=== PATIENT | female | born 1960 | race Caucasian/White ===

== ENCOUNTER → 2016-11-25 | Outpatient (CLI) | payer BC ==
[~2016-11-25] MED LIST: CELEXA PO; CLARITIN D PO; CLARITIN10 M3 DOB; DEPAKOTE ER PO; DEPAKOTE ER250 MG PO; DETROL LA2 MG PO; FISH OIL PO; FOLIC ACID PO; FOLIC ACID1 MG PO; FOSAMAX PO; LANSOPRAZOLE30 MG PO; MAXALT MLT10 MG/TAB PO; MIACALCIN4 ML; MULTI VITAMINS W1 MG; NEXIUM PO; NEXIUM40 MG/PACK; NITROFURANTOIN100 M3 PO; PANTOPRAZOLE SO40 MG PO; SIMVASTATIN10 MG PO; VITAMIN D1000 UNIT PO; ZONEGRAN100 MG PO
--- NOTE | ~2016-11-25 | US98 ---
[facility] A Service of [facility] RADIOLOGY TEXT RESULTS PATIENT: ANNETTA MOTLEY LOCATION: [facility] : 60 UNIT #: [id number] AGE: [address]: Cee Parkinson MD SEX: F ORDER DR: [id number] [place], [place] [address] [id number] O MR#: [id number] Acc #: [id number] NAME: ANNETTA MOTLEY : 1960 SEX: F STUDY DATE/TIME: 11/25/2016 10:10 UNIT: [facility] ROOM: STUDY DESCRIPTION: US Pelvic Non-OB Complete Attending Physician: Cee Parkinson M.D. Referring Physician: Cee Parkinson M.D. Ordering Physician: Cee Parkinson M.D. Primary Care Physician: Cee Pariknson M.D. MEDICAL IMAGING REPORT This report is preliminary unless electronic signature is present EXAM Transabdominal pelvic ultrasound DATE 11/25/2016 HISTORY Right lower quadrant pain. Abdominal pain. Weight gain and bloating. Symptoms present for a couple of months. Last menstrual period in her mid 40s. COMPARISON No prior pelvic ultrasound at this institution for comparison. Correlation made with CT abdomen and pelvis without contrast 08/25/2014. FINDINGS Transabdominal imaging only was performed, as requested. The uterus measures 5.1 x 2.6 x 3.1 cm. Endometrial bilayer is very difficult to visualize and accurately measure, but it measures on the order of 3 mm which is within normal limits in this postmenopausal patient. No definite focal endometrial myometrial lesion is identified on this limited study. The right and left ovaries are not satisfactorily visualized, likely obscured by bowel gas. Urinary bladder is incompletely distended and appears unremarkable. No free fluid is evident. IMPRESSION [facility] A Service of [facility] RADIOLOGY TEXT RESULTS PATIENT: ANNETTA MOTLEY LOCATION: [facility] : 60 UNIT #: [id number] AGE: [address]: Cee Parkinson MD SEX: F ORDER DR: 1. Unremarkable transabdominal pelvic ultrasound. 2. Neither the right nor left ovary could be visualized, likely obscured by bowel gas. Dictated by... Mary Bustillos M.D. THIS IS AN ELECTRONICALLY VERIFIED REPORT Mary Bustillos M.D. at 11/27/2016 8:32 AM [facility]/terell TD: 11/25/2016 16:01 JOB #: [id number] MEDICAL IMAGING REPORT Page 1 of 1 COPY
--- NOTE | ~2016-11-25 | US5 ---
[facility] A Service of [facility] RADIOLOGY TEXT RESULTS PATIENT: ANNETTA MOTLEY LOCATION: [facility] : 60 UNIT #: [id number] AGE: [address]: Cee Parkinson MD SEX: F ORDER DR: [id number] [facility] [address] [facility] [address] [place], [place] [address] [id number] O MR#: [id number] Acc #: [id number] NAME: ANNETTA MOTLEY : 1960 SEX: F STUDY DATE/TIME: 11/25/2016 10:10 UNIT: [facility] ROOM: STUDY DESCRIPTION: US Abdominal Complete Attending Physician: Cee Parkinson M.D. Referring Physician: Cee Parkinson M.D. Ordering Physician: Cee Parkinson M.D. Primary Care Physician: Cee Parkinson M.D. MEDICAL IMAGING REPORT This report is preliminary unless electronic signature is present EXAM Abdominal ultrasound, complete, 11/25/2016. HISTORY Abdominal pain and bilateral flank pain for 3 months with weight gain and abdominal bloating. Palpable liver and spleen on physical examination 11/13/2016. FINDINGS The liver is homogeneous in echotexture and demonstrates no cystic or solid mass lesions. The intra and extrahepatic bile ducts are not dilated. The gallbladder is normal with no evidence of cholelithiasis, wall thickening, or pericholecystic fluid. The common duct measures 2 mm. The pancreas and spleen are normal. The spleen measures 8.4 cm in greatest diameter. The visualized portions of the abdominal aorta and inferior vena cava are within normal limits. The kidneys are normal bilaterally. IMPRESSION Negative abdominal ultrasound. Dictated by... Earl Antony M.D. THIS IS AN ELECTRONICALLY VERIFIED REPORT Earl Antony M.D. at 11/26/2016 7:29 AM [place]/claudia TD: 11/25/2016 17:19 JOB #: [id number] [facility] A Service of [facility] RADIOLOGY TEXT RESULTS PATIENT: ANNETTA MOTLEY LOCATION: [facility] : 60 UNIT #: [id number] AGE: [address]: Cee Parkinson MD SEX: F ORDER DR: MEDICAL IMAGING REPORT Page 1 of 1 COPY
== END | disposition home or self-care (01) ==
LOC: CWCC 09:28
DX: R10.9 Unspecified abdominal pain (principal)
CPT/HCPCS: 76700; 76830; 76856